=== PATIENT | female | born 1955 | race Caucasian/White ===

== ENCOUNTER 2019-04-23 14:53 | Emergency (ER) | payer OTHER ==
--- NOTE | 2019-04-23 15:08 | ERPHSYRPT ---
- History of Present Illness Time Seen by Provider: 04/23/19 15:08 Source: patient, family Exam Limitations: no limitations Physician History: 64 y/o white female presents after falling with c/o bilat knee pain, right elbow pain, abrasions to bilat knees anteriorly and left forearm skin tear. pt denies cp, denies head, neck or back injury or pain. pts tetanus status 3 years ago. Occurred: just prior to arrival Reason for Fall: tripped (over a pool rope) Injuries/Pain Location: upper extremity (left forearm skin tear and right elbow) , lower extremity (bilat ant knees) Loss of Consciousness: no loss of consciousness Quality: aching, burning Severity of Pain-Max: mild Severity of Pain-Current: mild Modifying Factors: Improves With: movement (worsens pain) Associated Symptoms (Fall): extremity injury, No abdominal pain, No back pain, No confusion, No chest pain, No dizziness, No headache, No muscle spasms, No nausea, No neck pain, No shortness of breath, No slurred speech, No trouble walking, No vomiting Allergies/Adverse Reactions: sitagliptin [From [employer]] Allergy (Verified 04/23/19 15:10) Home Medications: Aspirin EC 325 mg [Ecotrin 325 MG] 325 mg PO DAILY 04/09/15 [History] Dronedarone Hydrochloride 400* [Multaq 400 MG] 400 mg PO BID 04/09/15 [ History] Potassium Chloride 20 Meq [Klor-Con 20 MEQ] 20 meq PO QID 04/09/15 [History] Simvastatin 20 mg PO HS 04/09/15 [History] Torsemide 50 mg PO BID 04/09/15 [History] Hx Tetanus, Diphtheria Vaccination/Date Given: Yes Hx Influenza Vaccination/Date Given: Yes Hx Pneumococcal Vaccination/Date Given: No - Review of Systems Constitutional: No Symptoms Eyes: No Symptoms Ears, Nose, & Throat: No Symptoms Respiratory: No Symptoms Cardiac: No Symptoms Abdominal/Gastrointestinal: No Symptoms Genitourinary Symptoms: No Symptoms Musculoskeletal: Fall, Injury (bilat ant knees, left forearm and right elbow) Skin: Other (skin tear left forearm and abrasion to bilat ant knees and right elbow) Neurological: No Symptoms Psychological: No Symptoms Endocrine: No Symptoms Hematologic/Lymphatic: No Symptoms Immunological/Allergic: No Symptoms All Other Systems: Reviewed and Negative - Past Medical History Pertinent Past Medical History: Yes Neurological History: No Pertinent History ENT History: No Pertinent History Cardiac History: High Cholesterol, Other Respiratory History: No Pertinent History Endocrine Medical History: No Pertinent History Musculoskeletal History: No Pertinent History GI Medical History: No Pertinent History History: No Pertinent History Psycho-Social History: No Pertinent History Female Reproductive Disorders: No Pertinent History Other Medical History: VENTRICULAR ARRHYTHMIAS, DILATED CARDIOMYOPATHY, LEAKING VALVES. - Past Surgical History Past Surgical History: No Neuro Surgical History: No Pertinent History Cardiac: No Pertinent History Respiratory: No Pertinent History Gastrointestinal: No Pertinent History Genitourinary: No Pertinent History Musculoskeletal: No Pertinent History Female Surgical History: No Pertinent History - Social History Smoking Status: Current every day smoker How long have you smoked: 50 Exposure to second hand smoke: No Drug Use: none Patient Lives Alone: No - Nursing Vital Signs Nursing Vital Signs: Initial Vital Signs Pulse Rate 82 04/23/19 15:02 Respiratory Rate 16 04/23/19 15:02 Blood Pressure 135/76 04/23/19 15:02 O2 Sat by Pulse Oximetry 94 L 04/23/19 15:02 Pain Scale Pain Intensity 0 - [place] Coma Score Best Eye Response (Maged): (4) open spontaneously Best Verbal Response ([place]): (5) oriented Best Motor Response ([place]): (6) obeys commands Maged Total: 15 - Physical Exam General Appearance: mild distress, alert, anxiety Head Injury: no evidence of injury Eye Exam: PERRL/EOMI, eyes nml inspection ENT Exam: airway nml, nml ext.inspection, No evidence of ENT injury, No dental injury Neck Exam: supple, trachea midline, full range of motion, normal alignment, normal inspection Respiratory/Chest Exam: No chest tenderness, No respiratory distress Gastrointestinal Exam: No tenderness Back Exam: normal inspection, normal range of motion, No CVA tenderness, No vertebral tenderness Extremity Exam: normal range of motion, tenderness (bilat ant knees, left forearm and right elbow), other (abrasions bilat knees and right elbow; skin tear left forearm) Neurologic Exam: alert, oriented x 3, cooperative, desk representative II-XII nml as tested, normal mood/affect, nml cerebellar function, nml station & gait Skin Exam: abrasion, other (skin tear) SpO2 Interpretation: borderline oxygenation O2 Delivery: Room Air - Course Nursing assessment & vital signs reviewed: Yes Ordered Tests: Active Orders 24 hr Category Date Time Status ELBOW (MINIMUM 3 VIEWS) Stat Exams 04/23/19 15:21 Completed KNEE (3 VIEWS) Stat Exams 04/23/19 15:21 Completed KNEE (3 VIEWS) Stat Exams 04/23/19 15:22 Completed Medication Summary Discontinued Medications Generic Name Dose Route Start Last Admin Trade Name Dayana PRN Reason Stop Dose Admin Bacitracin Zinc Confirm 04/23/19 16:09 Baciguent Packet Administered 04/23/19 16:10 Dose 3 gm .ROUTE .STK-MED ONE - Progress Progress: improved Progress Note: 04/23/19 17:06 pt does not want any narcotics in ED or at home. xray left knee-incomplete inferior patellar fx. xray right knee-no acute fx or dislocation. xray right elbow negative Counseled pt/family regarding: diagnosis, need for follow-up, rad results - Departure Departure Disposition: Home Clinical Impression: Skin tear of forearm without complication, Abrasion, Patellar fracture Condition: Stable Critical Care Time: No Referrals: RICH JENSEN [Primary Care Provider] - Additional Instructions: ice pack to all sites 3 times daily for 2 days. keep all abrasion and skin tear sites clean 2 times daily with soap and water. apply antibiotic ointment 2 times daily after washing sites. use crutches for light weight bearing only. follow up with orthopedic surgeon tomorrow for further management of left patellar fracture. tylenol for pain Prescriptions: Amoxicillin 500 mg Cap [Amoxil 500 mg] 500 mg PO TID #15 capsule
[2019-04-23 15:10] VITALS: BP 135/76
[2019-04-23] MEDS ORDERED: BACIGUENT PACKET ONE (16:09)
--- NOTE | 2019-04-23 16:38 | XRAY ---
Indication: Pain following fall. Comparison: April 09, 2015. 3 views of the left knee demonstrates new inferior patella incomplete fracture, best seen on lateral view with soft tissue swelling and small suprapatellar effusion. Elsewhere stable osteopenia, suprapatellar spurring, medial joint space narrowing/spurring, posterior fabella, and scattered vascular calcifications.
--- NOTE | 2019-04-23 16:41 | XRAY ---
Indication: Pain following fall. Comparison: None 3 views of the right elbow demonstrates mild osteopenia. No other bony, articular, or soft tissue abnormalities.
--- NOTE | 2019-04-23 16:41 | XRAY ---
Indication: Pain. Comparison: None 3 views of the right knee demonstrates mild osteopenia, mild medial/lateral joint space narrowing/spurring, tiny nonspecific effusion, posterior fabella, and faint scattered vascular calcifications. No other bony, articular, or soft tissue abnormalities.
[2019-04-23 17:03] VITALS: PULSE 97; O2SAT 98
== END 2019-04-23 17:34 | disposition home or self-care (01) ==
LOC: ED 14:53
DX: S51.812A Laceration without foreign body of left forearm, initial encounter (principal); S80.212A Abrasion, left knee, initial encounter; S80.211A Abrasion, right knee, initial encounter; W01.0XXA Fall on same level from slipping, tripping and stumbling without subsequent striking against object, initial encounter; M25.562 Pain in left knee; M25.561 Pain in right knee; M25.521 Pain in right elbow; Z79.899 Other long term (current) drug therapy; S82.009A Unspecified fracture of unspecified patella, initial encounter for closed fracture
CPT/HCPCS: 73080; 73562; 99283; A9270-GY

== ENCOUNTER 2022-08-07 11:14 | Emergency (ER) | payer MEDICARE, OTHER ==
--- NOTE | 2022-08-07 11:22 | ERPHSYRPT ---
- History of Present Illness Time Seen by Provider: 08/07/22 11:22 Historian: patient Exam Limitations: no limitations Physician History: This is a 67-year-old white female patient of Dr. Wilberto Wilkinson who happens to be out of the office today and patient has had right side abdominal pain with radiation to her right flank/back for approximately 2 to 3 weeks. She cannot get into see her primary care physician until August 30. She did not feel that she could wait because of her persistent symptoms. Patient has a history of hyperlipidemia and congestive heart failure. Patient denies chest pain. She denies shortness of breath. She has had no nausea vomiting or diarrhea symptoms. She had no fever. Timing/Duration: week(s) (2 to 3 weeks) Quality: aching Abdominal Pain Onset Location: RUQ Pain Radiation: flank (Right flank), back (Right back) Severity of Pain-Max: mild Severity of Pain-Current: mild Modifying Factors: Improves With: nothing Associated Symptoms: denies symptoms Previous symptoms: no prior history, no recent treatment Allergies/Adverse Reactions: sitagliptin [From ] Allergy (Verified 04/23/19 15:10) metformin Adverse Reaction (Intermediate, Verified 08/07/22 11:27) nausea diarrhea Home Medications: Aspirin EC 325 mg [Ecotrin 325 MG] 325 mg PO DAILY 04/09/15 [History] Potassium Chloride 20 Meq [Klor-Con 20 MEQ] 20 meq PO QID 04/09/15 [History] Simvastatin 20 mg PO HS 04/09/15 [History] Torsemide 50 mg PO BID 04/09/15 [History] Anastrozole 1 mg PO DAILY 08/07/22 [History] Dronedarone Hydrochloride 400* [Multaq 400 MG] 400 mg PO BID 08/07/22 [History] Glimepiride 0.5 mg PO DAILY 08/07/22 [History] Insulin Glargine,Hum.rec.anlog [Lantus] 18 unit SQ HS 08/07/22 [History] Levothyroxine Sodium 100 Mcg [Synthroid 100 Mcg] 100 mcg PO DAILY 08/07/22 [History] Hx Tetanus, Diphtheria Vaccination/Date Given: Yes Hx Influenza Vaccination/Date Given: Yes Hx Pneumococcal Vaccination/Date Given: No Travel Risk - International Travel Have you traveled outside of the country in past 3 weeks: No - Coronavirus Screening Are you exhibiting any of the following symptoms?: No Close contact with a COVID-19 positive Pt in past 14-21 Days: No - Review of Systems Constitutional: No Symptoms Eyes: No Symptoms Ears, Nose, & Throat: No Symptoms Respiratory: No Symptoms Cardiac: No Symptoms Abdominal/Gastrointestinal: Abdominal Pain (Right upper quadrant), No Nausea, No Vomiting, No Diarrhea, No Constipation Genitourinary Symptoms: Flank Pain (Right) Musculoskeletal: No Symptoms Skin: No Symptoms Neurological: No Symptoms Psychological: No Symptoms Endocrine: No Symptoms Hematologic/Lymphatic: No Symptoms Immunological/Allergic: No Symptoms All Other Systems: Reviewed and Negative - Past Medical History Pertinent Past Medical History: Yes Neurological History: No Pertinent History ENT History: No Pertinent History Cardiac History: High Cholesterol, Other Respiratory History: No Pertinent History Endocrine Medical History: No Pertinent History Musculoskeletal History: No Pertinent History GI Medical History: No Pertinent History History: No Pertinent History Psycho-Social History: No Pertinent History Female Reproductive Disorders: No Pertinent History Other Medical History: VENTRICULAR ARRHYTHMIAS, DILATED CARDIOMYOPATHY, LEAKING VALVES. - Past Surgical History Past Surgical History: No Neuro Surgical History: No Pertinent History Cardiac: No Pertinent History Respiratory: No Pertinent History Gastrointestinal: No Pertinent History Genitourinary: No Pertinent History Musculoskeletal: No Pertinent History Female Surgical History: No Pertinent History - Social History Smoking Status: Current every day smoker How long have you smoked: 50 Exposure to second hand smoke: No Drug Use: none Patient Lives Alone: No - Nursing Vital Signs Nursing Vital Signs: Initial Vital Signs Temperature 98.2 F 08/07/22 11:22 Pulse Rate 73 08/07/22 11:22 Respiratory Rate 20 08/07/22 11:22 Blood Pressure 192/105 08/07/22 11:22 O2 Sat by Pulse Oximetry 97 08/07/22 11:22 Pain Scale Pain Intensity 7 - Physical Exam General Appearance: no apparent distress, alert, anxiety Eye Exam: PERRL/EOMI, eyes nml inspection Ears, Nose, Throat Exam: normal ENT inspection, moist mucous membranes Neck Exam: normal inspection, non-tender, supple, full range of motion Respiratory Exam: normal breath sounds, lungs clear, airway intact, No chest tenderness, No respiratory distress Cardiovascular Exam: regular rate/rhythm, normal heart sounds, normal peripheral pulses Gastrointestinal/Abdomen Exam: soft, normal bowel sounds, tenderness (Right upper quadrant to palpation), guarding (Mild tenderness to palpation right upper quadrant), No rebound Pelvic Exam: not done Rectal Exam: not done Back Exam: normal inspection, normal range of motion, CVA tenderness (Mild right side), No vertebral tenderness Extremity Exam: normal inspection, normal range of motion, pelvis stable Neurologic Exam: alert, oriented x 3, cooperative, consultant in ergonomics and safety II-XII nml as tested, normal mood/affect, nml cerebellar function, nml station & gait, sensation nml Skin Exam: normal color, warm, dry Lymphatic Exam: No adenopathy SpO2 Interpretation: normal O2 Delivery: Room Air - Course Nursing assessment & vital signs reviewed: Yes Ordered Tests: Active Orders 24 hr Category Date Time Status IV Insertion STAT Care 08/07/22 11:42 Active ABDOMEN AND PELVIS W/0 CONTRAS [CT] Stat Exams 08/07/22 11:43 Completed AMYLASE Stat Lab 08/07/22 12:15 Completed CBC W DIFF Stat Lab 08/07/22 12:15 Completed CMP Stat Lab 08/07/22 12:15 Completed LIPASE Stat Lab 08/07/22 12:15 Completed Lactic Acid Stat Lab 08/07/22 11:35 Completed UA W/RFX CULTURE Stat Lab 08/07/22 11:56 Completed Lab/Rad Data: Laboratory Result Diagrams 08/07/22 12:15 08/07/22 12:15 Laboratory Results 08/07/22 08/07/22 08/07/22 Range/Units 12:15 12:15 11:56 WBC 6.7 (4.0-10.5) x10^3/uL RBC 5.37 (4.1-5.4) x10^6/uL Hgb 16.1 H (12.0-16.0) g/dL Hct 48.5 H (35-47) % MCV 90.3 (78-100) fL MCH 30.0 (26-32) pg MCHC 33.2 (32-36) g/dL RDW 13.2 (11.5-14.0) % Plt Count 225 (150-450) x10^3/uL MPV 9.9 (7.5-11.0) fL Gran % 65.6 (36.0-66.0) % Immature Gran % (Auto) 0.3 (0.00-0.4) % Nucleat RBC Rel Count 0.0 (0.00-0.1) % Eos # (Auto) 0.14 (0-0.5) x10^3/uL Immature Gran # (Auto) 0.02 (0.00-0.03) x10^3u/L Absolute Lymphs (auto) 1.59 (1.0-4.6) x10^3/uL Absolute Monos (auto) 0.49 (0.0-1.3) x10^3/uL Absolute Nucleated RBC 0.00 (0.00-0.01) x10^3u/L Lymphocytes % 23.8 L (24.0-44.0) % Monocytes % 7.3 (0.0-12.0) % Eosinophils % 2.1 (0.00-5.0) % Basophils % 0.9 (0.0-0.4) % Absolute Granulocytes 4.38 (1.4-6.9) x10^3/uL Basophils # 0.06 (0-0.4) x10^3/uL Sodium 143 (137-145) mmol/L Potassium 3.9 (3.5-5.1) mmol/L Chloride 105 (98-107) mmol/L Carbon Dioxide 26 (22-30) mmol/L Anion Gap 15.5 H (5-15) MEQ/L BUN 25 H (7-17) mg/dL Creatinine 1.00 (0.52-1.04) mg/dL Estimated GFR 58.8 ML/MIN Glucose 124 H (74-106) mg/dL Lactic Acid (0.4-2.0) Calcium 9.9 (8.4-10.2) mg/dL Total Bilirubin 0.80 (0.2-1.3) mg/dL AST 26 (14-36) U/L ALT 26 (0-35) U/L Alkaline Phosphatase 95 (38-126) U/L Serum Total Protein 7.7 (6.3-8.2) g/dL Albumin 4.8 (3.5-5.0) g/dL Amylase 71 (30-110) U/L Lipase 106 (23-300) U/L Urinalys Dipstick Clnc MAIN LAB Urine Color COLORLESS (YELLOW) Urine Appearance CLEAR (CLEAR) Urine pH 6.0 (5-6) Ur Specific [place] 1.010 (1.005-1.025) POC Urine Protein Conf NEGATIVE (Negative) Urine Ketones NEGATIVE (NEGATIVE) Urine Nitrite NEGATIVE (NEGATIVE) Urine Bilirubin NEGATIVE (NEGATIVE) Urine Urobilinogen 0.2 (0-1) mg/dL Urine Leukocytes NEGATIVE (NEGATIVE) Urine WBC (Auto) NONE (0-5) /HPF Urine RBC (Auto) NONE (0-2) /HPF U Epithel Cells (Auto) NONE (FEW) /HPF Urine Bacteria (Auto) NONE (NEGATIVE) /HPF Urine RBC TRACE-INTACT (0-5) Dylan/ul Ur Culture Indicated? NO Urine Glucose 500 (NEGATIVE) mg/dL 08/07/22 Range/Units 11:35 WBC (4.0-10.5) x10^3/uL RBC (4.1-5.4) x10^6/uL Hgb (12.0-16.0) g/dL Hct (35-47) % MCV (78-100) fL MCH (26-32) pg MCHC (32-36) g/dL RDW (11.5-14.0) % Plt Count (150-450) x10^3/uL MPV (7.5-11.0) fL Gran % (36.0-66.0) % Immature Gran % (Auto) (0.00-0.4) % Nucleat RBC Rel Count (0.00-0.1) % Eos # (Auto) (0-0.5) x10^3/uL Immature Gran # (Auto) (0.00-0.03) x10^3u/L Absolute Lymphs (auto) (1.0-4.6) x10^3/uL Absolute Monos (auto) (0.0-1.3) x10^3/uL Absolute Nucleated RBC (0.00-0.01) x10^3u/L Lymphocytes % (24.0-44.0) % Monocytes % (0.0-12.0) % Eosinophils % (0.00-5.0) % Basophils % (0.0-0.4) % Absolute Granulocytes (1.4-6.9) x10^3/uL Basophils # (0-0.4) x10^3/uL Sodium (137-145) mmol/L Potassium (3.5-5.1) mmol/L Chloride (98-107) mmol/L Carbon Dioxide (22-30) mmol/L Anion Gap (5-15) MEQ/L BUN (7-17) mg/dL Creatinine (0.52-1.04) mg/dL Estimated GFR ML/MIN Glucose (74-106) mg/dL Lactic Acid 1.2 (0.4-2.0) Calcium (8.4-10.2) mg/dL Total Bilirubin (0.2-1.3) mg/dL AST (14-36) U/L ALT (0-35) U/L Alkaline Phosphatase (38-126) U/L Serum Total Protein (6.3-8.2) g/dL Albumin (3.5-5.0) g/dL Amylase (30-110) U/L Lipase (23-300) U/L Urinalys Dipstick Clnc Urine Color (YELLOW) Urine Appearance (CLEAR) Urine pH (5-6) Ur Specific [place] (1.005-1.025) POC Urine Protein Conf (Negative) Urine Ketones (NEGATIVE) Urine Nitrite (NEGATIVE) Urine Bilirubin (NEGATIVE) Urine Urobilinogen (0-1) mg/dL Urine Leukocytes (NEGATIVE) Urine WBC (Auto) (0-5) /HPF Urine RBC (Auto) (0-2) /HPF U Epithel Cells (Auto) (FEW) /HPF Urine Bacteria (Auto) (NEGATIVE) /HPF Urine RBC (0-5) Dylan/ul Ur Culture Indicated? Urine Glucose (NEGATIVE) mg/dL - Progress Progress: unchanged, pain not gone completely Progress Note: 08/07/22 12:23 CAT scan of the abdomen pelvis without contrast shows a tiny pericardial effusion versus thickening. Outpatient echocardiogram recommended if clinically warranted. There is also a small incidental left adrenal adenoma. There is a normal appendix. The gallbladder is unremarkable Counseled pt/family regarding: lab results, diagnosis, need for follow-up, rad results - Departure Departure Disposition: Home Clinical Impression: Right upper quadrant abdominal pain Condition: Stable Critical Care Time: No Referrals: RICH LLOYD [Primary Care Provider] - Follow up/PCP as directed Additional Instructions: Avoid fatty greasy spicy foods. Follow-up with your primary care provider for further evaluation including gallbladder ultrasound and echocardiogram if clinically indicated.
[2022-08-07 11:56] LABS: Appearance CLEAR (CLEAR)
[2022-08-07 11:57] LABS: Bilirubin NEGATIVE (NEGATIVE); Dipstick done @ ? MAIN LAB; Glucose 500 mg/dL (NEGATIVE); Ketones NEGATIVE (NEGATIVE); Nitrite NEGATIVE (NEGATIVE); Protein,Urine Dip NEGATIVE (Negative); RBC TRACE-INTACT Ery/ul (0-5); Urobilinogen 0.2 mg/dL (0-1)
[2022-08-07 11:58] LABS: Urine Cultured Indicated? NO
--- NOTE | 2022-08-07 12:18 | XRAY ---
Indication: Right upper quadrant pain and nausea. Multiple contiguous has images obtained through the abdomen and pelvis without contrast. Comparison: None Lung bases demonstrates scattered subsegmental atelectasis/scarring, left greater than right. Heart is not enlarged with tiny pericardial effusion/thickening anteriorly. Small hiatal hernia. Stomach demonstrates intraluminal radiopacities either ingested medication/bismuth versus barium. Noncontrasted bowel loops appear nonobstructed with normal appendix. Mild diffuse scattered colonic fecal debris greatest in the ascending and transverse colon. Also diffuse scattered colonic diverticulosis without diverticulitis. No free fluid/air. Incidental tiny hepatic/splenic calcified granulomas and 1.7 cm left adrenal adenoma. Remaining liver, gallbladder, pancreas, spleen, adrenal glands, kidneys, ureters, bladder, and uterus are unremarkable for noncontrast exam. Mild scattered aortoiliac calcifications without AAA. Osseous structures intact with mild osteopenia and minimal/mild degenerative changes throughout the thoracolumbar spine. Impression: 1. Tiny pericardial effusion/thickening. Outpatient echocardiogram may yield further information if clinically warranted. 2. Small hiatal hernia, mild diffuse fecal stasis, and scattered colonic diverticulosis. 3. Incidental small left adrenal adenoma, arteriosclerotic disease, chronic bony findings, and old granulomatous disease. 4. Remaining CT abdomen/pelvis without contrast exam is negative.
[2022-08-07 12:21] LABS: Absolute Neutrophil Ct (ANC) 4.38 x10^3/uL (1.4-6.9); Basophil (Absolute #) 0.06 x10^3/uL (0-0.4); Eosinophil % 2.1 % (0.00-5.0); Eosinophil (Absolute #) 0.14 x10^3/uL (0-0.5); Hematocrit 48.5 % (35-47); Hemoglobin 16.1 g/dL (12.0-16.0); Lymphocyte (Absolute #) 1.59 x10^3/uL (1.0-4.6); Lymphocytes % 23.8 % (24.0-44.0); Mean Cell Volume 90.3 fL (78-100); Mean Corpuscular Hgb Concent. 33.2 g/dL (32-36); Mean Platelet Volume 9.9 fL (7.5-11.0); Monocyte (Absolute #) 0.49 x10^3/uL (0.0-1.3); Monocytes % 7.3 % (0.0-12.0); Neutrophil % 65.6 % (36.0-66.0); Platelet Count 225 x10^3/uL (150-450); Red Blood Count 5.37 x10^6/uL (4.1-5.4); Red Cell Distribution Width 13.2 % (11.5-14.0); White Blood Count 6.7 x10^3/uL (4.0-10.5)
[2022-08-07 12:41] VITALS: BP 158/80; PULSE 62; O2SAT 98
[2022-08-07 12:50] LABS: ALBUMIN 4.8 g/dL (3.5-5.0); ANION GAP 15.5 MEQ/L (5-15); BILIRUBIN,TOTAL 0.8 mg/dL (0.2-1.3); Calcium 9.9 mg/dL (8.4-10.2); EST GLOMERULAR FILTRATION RATE 58.8 ML/MIN; Potassium 3.9 mmol/L (3.5-5.1); Total Protein 7.7 g/dL (6.3-8.2)
== END 2022-08-07 13:00 | disposition home or self-care (01) ==
LOC: ED 11:14
DX: R10.11 Right upper quadrant pain (principal); E78.5 Hyperlipidemia, unspecified; Z72.0 Tobacco use; Z79.4 Long term (current) use of insulin; Z79.84 Long term (current) use of oral hypoglycemic drugs; Z79.899 Other long term (current) drug therapy
CPT/HCPCS: 36415; 74176; 80053; 81015; 82150; 83605; 83690; 85025; 99283